=== PATIENT | male | born 1965 | race African-American/Black ===

== ENCOUNTER 2016-07-14 10:50 | Inpatient (IN) | payer OTHER ==
[2016-07-14 11:06] VITALS: BMI 24.4
--- NOTE | 2016-07-14 14:15 | HP ---
CIWA Score - CIWA Score Nausea/Vomitin-Int. Nausea w/Dry Heave Muscle Tremors: 3 Anxiety: 4-Mod. Anxious/Guarded Agitation: 4-Moderately Restless Paroxysmal Sweats: 1-Minimal Palms Moist Orientation: 0-Oriented Tacttile Disturbances: 3-Moderate Itch/Numb/Burn Auditory Disturbances: 0-None Visual Disturbances: 0-None Headache: 1-Very Mild CIWA-Ar Total Score: 20 Admission ROS S - HPI Chief Complaint: DETOX TX Allergies/Adverse Reactions: Allergies Allergy/AdvReac Type Severity Reaction Status Date / Time No Known Allergies Allergy Verified 07/14/16 13:23 History of Present Illness: 50 Y/O AA/MALE WITH A HX OF ALCOHOL, COCAINE,AND MARIJUANA DEPENDENCE. PT ON WAFARIN FOR DUE TO HX OF DVT RIGHT POPLITEAL AND PULMONARY EMBOLISM. PT STATES WAS IN [facility] AND CAME OUT ON 07/04/16 OR 07/05/16(INCONSISTENT HISTORY). PT STATES HE WAS TAKEN TO [facility] WHILE IN [facility] AND GIVEN ONE DOSE OF LOVENOX AND HAS NOT TAKEN ANTICOAGULANT SINCE THEN. PT HAS RX FOR SUBOXONE BUT CLAIMS HE IS NOT TAKING IT. Exam Limitations: No Limitations - Ebola screening Have you traveled outside of the country in the last 21 days: No Have you had contact with anyone from an Ebola affected area: No Have you been sick,other than usual withdrawal symptoms: No - Review of Systems Constitutional: Loss of Appetite, Night Sweats, Changes in sleep, Unintentional Wgt. Loss EENT: reports: Nose Congestion Respiratory: reports: No Symptoms reported Cardiac: reports: No Symptoms Reported GI: reports: Diarrhea, Nausea, Poor Appetite, Poor Fluid Intake, Indigestion : reports: Frequency (ON BP MEDS) Musculoskeletal: reports: Muscle Pain Integumentary: reports: Dryness Neuro: reports: Headache, Unsteady Gait, Dizziness Hematology: reports: Blood Clots (HX DVT RIGHT POPLITEAL AND PE BOTH LUNGS-- ARTERIAL IVC FILTER IN PLACE.) Psychiatric: reports: Orientated x3, Anxious, Depressed Other Systems: Reviewed and Negative Patient History - Patient Medical History Hx Anemia: No Hx Asthma: No Hx Chronic Obstructive Pulmonary Disease (COPD): No Hx Cancer: No Hx Cardiac Disorders: No Hx Congestive Heart Failure: No Hx Hypertension: Yes (ON MEDS) Hx Hypercholesterolemia: No Hx Pacemaker: No HX Cerebrovascular Accident: No Hx Seizures: No Hx Dementia: No Hx Diabetes: No Hx Gastrointestinal Disorders: No Hx Liver Disease: No Hx Genitourinary Disorders: No Hx Sexually Transmitted Disorders: Yes (GC as teenager/MAGDIEL) Hx Renal Disease (ESRD): No Hx Thyroid Disease: No Hx Human Immunodeficiency Virus (HIV): No (NEGATIVE HX) Hx Hepatitis C: No Hx Depression: Yes (ON MEDS) Hx Suicide Attempt: No (DENIES) Hx Bipolar Disorder: No Hx Schizophrenia: No - Patient Surgical History Past Surgical History: Yes Hx Neurologic Surgery: No Hx Cataract Extraction: No Hx Cardiac Surgery: No Hx Lung Surgery: No Hx Breast Surgery: No Hx Breast Biopsy: No Hx Abdominal Surgery: No Hx Appendectomy: No Hx Cholecystectomy: No Hx Genitourinary Surgery: No Hx Orthopedic Surgery: No Other Surgical History: IVC FILTER JANUARY 2014 Anesthesia Reaction: No - PPD History Previous Implant?: Yes Documented Results: Negative w/proof Implanted On Prior [facility] Admission?: Yes Date: 11/09/13 Results: 0 mm PPD to be Administered?: Yes - Reproductive History Patient is a Female of Child Bearing Age (11 -55 yrs old): No (MALE) - Smoking Cessation Smoking history: Never smoked Have you smoked in the past 12 months: No Hx Chewing Tobacco Use: No - Substance & Tx. History Hx Alcohol Use: Yes (BEER/VODKA) Hx Substance Use: Yes (COCAINE/MARIJUANA) Substance Use Type: Alcohol, Cocaine, Marijuana Hx Substance Use Treatment: Yes ([facility]) - Substances Abused Alcohol Route: Oral Frequency: Daily Amount used: beer(1-2 6pk-16 oz cans)/vodka(1 [pint) Age of first use: 17 Date of Last Use: 07/14/16 Cocaine Route: Inhalation Frequency: 3-6 times per week Amount used: $100 Age of first use: 19 Date of Last Use: 07/14/16 Marijuana/Hashish Route: Smoking Frequency: 3-6 times per week Amount used: louis bags Age of first use: 17 Date of Last Use: 07/13/16 Family Disease History - Family Disease History Family Disease History: Heart Disease: Mother (HTN,CX. CA), CA: Mother, Other: Father (ALCOHOLISM) Admission Physical Exam BHS - Vital Signs Vital Signs: Vital Signs - 24 hr 07/14/16 11:01 Temperature 97.1 F L Pulse Rate 72 Respiratory 20 Rate Blood Pressure 123/70 - Physical General Appearance: Yes: Moderate Distress, Irritable, Anxious HEENTM: Yes: EOMI, Normocephalic, MARIANA, Pharynx Normal Respiratory: Yes: Chest Non-Tender, Lungs Clear, Normal Breath Sounds, No Respiratory Distress Neck: Yes: No masses,lesions,Nodules, Supple, Trachea in good position Breast: Yes: Breast Exam Deferred Cardiology: Yes: Regular Rhythm, Regular Rate, S1, S2 Abdominal: Yes: Normal Bowel Sounds, Non Tender, Soft Genitourinary: Yes: Other (N/C) Back: Yes: Within Normal Limits Musculoskeletal: Yes: full range of Motion, Gait Steady Extremities: Yes: Normal Range of Motion, Non-Tender Neurological: Yes: relocation associate II-XII NML intact, Fully Oriented, Alert Integumentary: Yes: Dry, Warm Lymphatic: Yes: Within Normal Limits - Diagnostic (1) DVT (deep venous thrombosis) Current Visit: Yes Status: Chronic Qualifiers: DVT location: lower extremity Comment: ON WARFARIN; PT/INR PENDING (2) Hx pulmonary embolism Current Visit: Yes Status: Resolved (3) S/P insertion of inferior vena caval filter Current Visit: Yes Status: Chronic (4) Alcohol dependence with uncomplicated withdrawal Current Visit: Yes Status: Acute (5) Cocaine dependence, uncomplicated Current Visit: Yes Status: Acute (6) Cannabis dependence, uncomplicated Current Visit: Yes Status: Acute Cleared for Admission [facility] - Detox or Rehab [facility] Level of Care: Medically Managed Detox Regimen/Protocol: Librium [facility] Breath Alcohol Content Breath Alcohol Content: 0 Urine Drug Screen - Results Drug Screen Negative: No Urine Drug Screen Results: THC-Marijuana, CONNOR-Cocaine
[2016-07-14] MEDS ORDERED: diphenhydrAMINE HCL 50 MG CAPSULE PO PRN (14:48)
[2016-07-14] MEDS ORDERED: MAGNESIUM HYDROX 2400MG/30ML ORAL SUSPENSION 30 ML CUP PO PRN (14:48)
[2016-07-14] MEDS ORDERED: IBUPROFEN 400 MG TABLET (FP) PO PRN (14:48)
[2016-07-14] MEDS ORDERED: hydrOXYzine PAMOATE 25 MG CAPSULE (FP) PO PRN (14:48)
[2016-07-14] MEDS ORDERED: ACETAMINOPHEN 325 MG TABLET (FP) PO PRN (14:48)
[2016-07-14] MEDS ORDERED: P-EPHED 60MG/TRIPROLIDI 2.5MG TABLET PO PRN (14:48)
[2016-07-14] MEDS ORDERED: LOPERAMIDE HCL 2 MG CAPSULE PO PRN (14:48)
[2016-07-14] MEDS ORDERED: chlordiazePOXIDE HCL 25 MG CAPSULE PO PRN (14:48)
[2016-07-14] MEDS ORDERED: MENTHOL/PHENOL 1 EACH UD MM PRN (14:48)
[2016-07-14] MEDS ORDERED: guaiFENesin/D-METHORPHAN HB 10 ML UNIT-DOSE CUPS PO PRN (14:48)
[2016-07-14] MEDS ORDERED: MAGNESIUM CITRATE 300 ML BOTTLE PO PRN (14:48)
[2016-07-14] MEDS ORDERED: MAG HYDROX/AL HYDROX/SIMETH 30 ML UNIT-DOSE CUP PO PRN (14:48)
[2016-07-14] MEDS ORDERED: chlordiazePOXIDE HCL 25 MG CAPSULE PO ONE (16:15)
[2016-07-14] MEDS: HYDROCHLOROTHIAZIDE 25 MG TABLET (FP) PO SCH (16:34)
[2016-07-14 16:53] LABS: MCH 31.5 pg (25.7-33.7); MCHC 33.3 g/dl (32.0-35.9); MEAN CELL VOLUME 94.6 fl (80-96); MEAN PLT VOLUME 8.8 fl (7.5-11.1); PLATELET COUNT 215 K/MM3 (134-434); RDW 13.8 % (11.9-15.9); WHITE BLOOD COUNT 4.4 K/mm3 (4.0-10.0)
[2016-07-14 16:59] LABS: ALBUMIN 3.3 g/dl (3.4-5.0); ALK PHOS 51 U/L (45-117); ANION GAP 10 (8-16); BILIRUBIN,TOTAL 0.5 mg/dL (0.2-1.0); CALCIUM 8.5 mg/dL (8.5-10.1); CO2 26 mmol/L (21-32); COCKROFT - GAULT 87.4; GLUCOSE,RANDOM 92 mg/dL (74-106); SGOT/AST 18 U/L (15-37); SGPT/ALT 25 U/L (12-78); TOT PROT 6.5 g/dl (6.4-8.2)
[2016-07-14 17:05] LABS: URINE APPEARANCE CLEAR; URINE BILIRUBIN NEGATIVE (NEGATIVE); URINE BLOOD NEGATIVE (NEGATIVE); URINE COLOR YELLOW; URINE GLUCOSE (UA) NEGATIVE (NEGATIVE); URINE KETONE NEGATIVE (NEGATIVE); URINE LEUK ESTERASE NEGATIVE (NEGATIVE); URINE NITRITE NEGATIVE (NEGATIVE); URINE PROTEIN NEGATIVE (NEGATIVE); URINE UROBILINOGEN NEGATIVE E.U./dl (0.2-1.0)
[2016-07-14] MEDS ORDERED: ASPIRIN COATED 81 MG TABLET.EC PO SCH (17:30)
[2016-07-14 17:32] LABS: INR 0.98 (0.82-1.09); PROTHROMBIN TIME (PATIENT) 10.8 SEC (9.98-11.88)
[2016-07-14] MEDS: chlordiazePOXIDE HCL 25 MG CAPSULE PO SCH ×2 (17:32→22:36)
[2016-07-14] MEDS ORDERED: WARFARIN NA 10 MG TABLET (FP) PO SCH ×2 (18:00)
[2016-07-14] MEDS: THIAMINE HCL 100 MG TABLET (FP) PO SCH (22:36)
[2016-07-15] MEDS: chlordiazePOXIDE HCL 25 MG CAPSULE PO SCH ×4 (06:08→22:35)
[2016-07-15 09:04] LABS: HIV 1 & 2 AB NEGATIVE; HIV 1 AGp24 NEGATIVE
--- NOTE | 2016-07-15 10:27 | PN ---
S CIWA - CIWA Score Nausea/Vomitin-Mild Nausea/No Vomiting Muscle Tremors: 4-Moderate,w/Arms Extend Anxiety: 3 Agitation: 4-Moderately Restless Paroxysmal Sweats: 3 Orientation: 0-Oriented Tacttile Disturbances: 0-None Auditory Disturbances: 0-None Visual Disturbances: 0-None Headache: 0-None Present CIWA-Ar Total Score: 15 BHS Progress Note (SOAP) Subjective: Anxiety,tremors,sweating,interrupted sleep,restless Objective: 07/15/16 10:25 Vital Signs - 8 hr 07/15/16 07/15/16 07/15/16 03:30 06:49 09:58 Temperature 97.5 F L 95.9 F L Pulse Rate 69 80 Respiratory 18 18 18 Rate Blood Pressure 124/90 132/80 Laboratory Last Values WBC 4.4 K/mm3 (4.0-10.0) 07/14/16 13:00 RBC 4.10 M/mm3 (4.00-5.60) 07/14/16 13:00 Hgb 12.9 GM/dL (11.7-16.9) 07/14/16 13:00 Hct 38.8 % (35.4-49) 07/14/16 13:00 MCV 94.6 fl (80-96) 07/14/16 13:00 MCHC 33.3 g/dl (32.0-35.9) 07/14/16 13:00 RDW 13.8 % (11.9-15.9) D 07/14/16 13:00 Plt Count 215 K/MM3 (134-434) D 07/14/16 13:00 MPV 8.8 fl (7.5-11.1) 07/14/16 13:00 INR 0.98 (0.82-1.09) 07/14/16 13:00 Sodium 146 mmol/L (136-145) H 07/14/16 13:00 Potassium 3.8 mmol/L (3.5-5.1) 07/14/16 13:00 Chloride 110 mmol/L (98-107) H 07/14/16 13:00 Carbon Dioxide 26 mmol/L (21-32) 07/14/16 13:00 Anion Gap 10 (8-16) 07/14/16 13:00 BUN 11 mg/dL (7-18) D 07/14/16 13:00 Creatinine 1.0 mg/dL (0.7-1.3) 07/14/16 13:00 Creat Clearance w eGFR > 60 (>60) 07/14/16 13:00 Random Glucose 92 mg/dL (74-106) 07/14/16 13:00 Calcium 8.5 mg/dL (8.5-10.1) 07/14/16 13:00 Total Bilirubin 0.5 mg/dL (0.2-1.0) 07/14/16 13:00 AST 18 U/L (15-37) 07/14/16 13:00 ALT 25 U/L (12-78) D 07/14/16 13:00 Alkaline Phosphatase 51 U/L (45-117) D 07/14/16 13:00 Total Protein 6.5 g/dl (6.4-8.2) 07/14/16 13:00 Albumin 3.3 g/dl (3.4-5.0) L 07/14/16 13:00 Urine Color Yellow 07/14/16 15:00 Urine Appearance Clear 07/14/16 15:00 Urine pH 6.0 (5.0-8.0) 07/14/16 15:00 Ur Specific [place] 1.026 (1.001-1.035) 07/14/16 15:00 Urine Protein Negative (NEGATIVE) 07/14/16 15:00 Urine Glucose (UA) Negative (NEGATIVE) 07/14/16 15:00 Urine Ketones Negative (NEGATIVE) 07/14/16 15:00 Urine Blood Negative (NEGATIVE) 07/14/16 15:00 Urine Nitrite Negative (NEGATIVE) 07/14/16 15:00 Urine Bilirubin Negative (NEGATIVE) 07/14/16 15:00 Urine Urobilinogen Negative E.U./dl (0.2-1.0) 07/14/16 15:00 Ur Leukocyte Esterase Negative (NEGATIVE) 07/14/16 15:00 RPR Titer Nonreactive (NONREACTIVE) 07/14/16 13:00 HIV 1&2 Antibody Screen Negative 07/14/16 13:00 HIV P24 Antigen Negative 07/14/16 13:00 labs noted Assessment: 07/15/16 10:27 Withdrawal sx. Plan: Continue detox
[2016-07-15] MEDS: HYDROCHLOROTHIAZIDE 25 MG TABLET (FP) PO SCH (10:38)
[2016-07-15] MEDS: PRENATAL VITAMINS W/ FOLIC ACID TABLET (FP) PO SCH (10:38)
--- NOTE | 2016-07-15 14:10 | EKG ---
Test Reason : Blood Pressure : / mmHG Vent. Rate : 058 BPM Atrial Rate : 058 BPM P-R Int : 106 ms QRS Dur : 096 ms QT Int : 438 ms P-R-T Axes : 065 025 014 degrees QTc Int : 429 ms SINUS BRADYCARDIA WITH SHORT CO OTHERWISE NORMAL ECG NO PREVIOUS ECGS AVAILABLE Confirmed by SHARMIN KELLEY, COLTON ([id number]) on 07/15/2016 2:09:36 PM Referred By: Confirmed By:COLTON FINNEY MD
--- NOTE | 2016-07-15 17:02 | CONSULT ---
[facility] Psychiatric Consult - Data Date of interview: 07/15/16 Admission source: [facility] Identifying data: Readmission to [facility] for this 50 y/o AA male from [place] ancestry seeking detox treatment for alcohol,cocaine and marijuana dependence.Patient is ,a father of one,domiciled,unemployed and supported on Public Assistance. Substance Abuse History: - Smoking Cessation. Smoking history: Never smoked. Have you smoked in the past 12 months: No. Hx Chewing Tobacco Use: No. - Substance & Tx. History. Hx Alcohol Use: Yes (BEER/VODKA). Hx Substance Use: Yes (COCAINE/MARIJUANA). Substance Use Type: Alcohol, Cocaine, Marijuana. Hx Substance Use Treatment: Yes ([facility]). - Substances Abused. Alcohol. Route: Oral. Frequency: Daily. Amount used: beer(1-2 6pk-16 oz cans)/vodka(1 [ pint). Age of first use: 17. Date of Last Use: 07/14/16. Cocaine. Route: Inhalation. Frequency: 3-6 times per week. Amount used: $100. Age of first use: 19. Date of Last Use: 07/14/16. Marijuana/Hashish. Route: Smoking. Frequency: 3-6 times per week. Amount used: louis bags. Age of first use: 17. Date of Last Use: 07/13/16. Confirmed by patient. Medical History: Hypertension and a history of DVT (right popliteal vein)/ pulmonary embolism (IVC filter in place). Psychiatric History: Recent onset of psychiatric problems (one year).Diagnosed with " manic-depressive " problems.Prescribed wellbutrin XL 150 mg/day.Mr Hennessy reports past history of psychiatric hospitalizations at [facility] [place], [place], [facility] and [facility].He gets his OPD care at the [facility] health clinic in the [place].Patient denies history of suicide attempts. Physical/Sexual Abuse/Trauma History: Patient denies. Additional Comment: Urine Drug Screen Results: THC-Marijuana, CONNOR-Cocaine.Noted. Mental Status Exam - Mental Status Exam Alert and Oriented to: Time, Place, Person Cognitive Function: Good Patient Appearance: Well Groomed Mood: Hopeful, Euthymic Affect: Appropriate, Normal Range Patient Behavior: Appropriate, Cooperative Speech Pattern: Clear, Appropriate Voice Loudness: Normal Thought Process: Goal Oriented Thought Disorder: Not Present Hallucinations: Denies Suicidal Ideation: Denies Homicidal Ideation: Denies Insight/Judgement: Poor Sleep: Well Appetite: Good Muscle strength/Tone: Normal Gait/Station: Normal Psychiatric Findings - Problem List ([place] 1, 2,3) (1) Alcohol dependence with uncomplicated withdrawal Current Visit: Yes Status: Acute (2) Cannabis dependence, uncomplicated Current Visit: Yes Status: Acute (3) Cocaine dependence, uncomplicated Current Visit: Yes Status: Acute (4) MDD (major depressive disorder), recurrent episode, moderate Current Visit: Yes Status: Chronic (5) DVT (deep venous thrombosis) Current Visit: Yes Status: Chronic Qualifiers: DVT location: lower extremity Comment: ON WARFARIN; PT/INR PENDING (6) S/P insertion of inferior vena caval filter Current Visit: Yes Status: Chronic (7) Hx pulmonary embolism Current Visit: Yes Status: Resolved - Initial Treatment Plan Initial Treatment Plan: Psychoeducation.Detoxification.Wellbutrin XL 150 mg po daily.Patient made aware of risk for seizures.He denies past history of adverse events from wellbutrin and requests the inclusion of that drug in the current regimen.Observation.
[2016-07-15] MEDS ORDERED: WARFARIN NA 7.5 MG TABLET (FP) PO SCH (18:00)
[2016-07-15] MEDS: THIAMINE HCL 100 MG TABLET (FP) PO SCH (22:35)
[2016-07-16] MEDS: chlordiazePOXIDE HCL 25 MG CAPSULE PO SCH ×2 (05:56→10:33)
[2016-07-16] MEDS: PRENATAL VITAMINS W/ FOLIC ACID TABLET (FP) PO SCH (10:33)
[2016-07-16] MEDS: HYDROCHLOROTHIAZIDE 25 MG TABLET (FP) PO SCH (10:33)
[2016-07-16] MEDS: WARFARIN NA 10 MG TABLET (FP) PO SCH (17:06)
[2016-07-16] MEDS: chlordiazePOXIDE 5 MG CAPSULE PO SCH ×2 (17:06→22:50)
[2016-07-16] MEDS: THIAMINE HCL 100 MG TABLET (FP) PO SCH (22:50)
--- NOTE | 2016-07-16 23:13 | PN ---
[facility] CIWA - CIWA Score Nausea/Vomitin-No Nausea/No Vomiting Muscle Tremors: 4-Moderate,w/Arms Extend Anxiety: 4-Mod. Anxious/Guarded Agitation: 4-Moderately Restless Paroxysmal Sweats: 1-Minimal Palms Moist Orientation: 0-Oriented Tacttile Disturbances: 3-Moderate Itch/Numb/Burn Auditory Disturbances: 0-None Visual Disturbances: 0-None Headache: 0-None Present CIWA-Ar Total Score: 16 BHS Progress Note (SOAP) Subjective: slight anxiety sweats tremors Objective: 07/16/16 23:11 Laboratory Last Values WBC 4.4 K/mm3 (4.0-10.0) 07/14/16 13:00 RBC 4.10 M/mm3 (4.00-5.60) 07/14/16 13:00 Hgb 12.9 GM/dL (11.7-16.9) 07/14/16 13:00 Hct 38.8 % (35.4-49) 07/14/16 13:00 MCV 94.6 fl (80-96) 07/14/16 13:00 MCHC 33.3 g/dl (32.0-35.9) 07/14/16 13:00 RDW 13.8 % (11.9-15.9) D 07/14/16 13:00 Plt Count 215 K/MM3 (134-434) D 07/14/16 13:00 MPV 8.8 fl (7.5-11.1) 07/14/16 13:00 INR 0.98 (0.82-1.09) 07/14/16 13:00 Sodium 146 mmol/L (136-145) H 07/14/16 13:00 Potassium 3.8 mmol/L (3.5-5.1) 07/14/16 13:00 Chloride 110 mmol/L (98-107) H 07/14/16 13:00 Carbon Dioxide 26 mmol/L (21-32) 07/14/16 13:00 Anion Gap 10 (8-16) 07/14/16 13:00 BUN 11 mg/dL (7-18) D 07/14/16 13:00 Creatinine 1.0 mg/dL (0.7-1.3) 07/14/16 13:00 Creat Clearance w eGFR > 60 (>60) 07/14/16 13:00 Random Glucose 92 mg/dL (74-106) 07/14/16 13:00 Calcium 8.5 mg/dL (8.5-10.1) 07/14/16 13:00 Total Bilirubin 0.5 mg/dL (0.2-1.0) 07/14/16 13:00 AST 18 U/L (15-37) 07/14/16 13:00 ALT 25 U/L (12-78) D 07/14/16 13:00 Alkaline Phosphatase 51 U/L (45-117) D 07/14/16 13:00 Total Protein 6.5 g/dl (6.4-8.2) 07/14/16 13:00 Albumin 3.3 g/dl (3.4-5.0) L 07/14/16 13:00 Urine Color Yellow 07/14/16 15:00 Urine Appearance Clear 07/14/16 15:00 Urine pH 6.0 (5.0-8.0) 07/14/16 15:00 Ur Specific [place] 1.026 (1.001-1.035) 07/14/16 15:00 Urine Protein Negative (NEGATIVE) 07/14/16 15:00 Urine Glucose (UA) Negative (NEGATIVE) 07/14/16 15:00 Urine Ketones Negative (NEGATIVE) 07/14/16 15:00 Urine Blood Negative (NEGATIVE) 07/14/16 15:00 Urine Nitrite Negative (NEGATIVE) 07/14/16 15:00 Urine Bilirubin Negative (NEGATIVE) 07/14/16 15:00 Urine Urobilinogen Negative E.U./dl (0.2-1.0) 07/14/16 15:00 Ur Leukocyte Esterase Negative (NEGATIVE) 07/14/16 15:00 RPR Titer Nonreactive (NONREACTIVE) 07/14/16 13:00 HIV 1&2 Antibody Screen Negative 07/14/16 13:00 HIV P24 Antigen Negative 07/14/16 13:00 07/16/16 23:11 Vital Signs - 24 hr 07/16/16 07/16/16 07/16/16 00:30 03:33 06:38 Temperature 97.2 F L Pulse Rate 78 Respiratory 18 18 18 Rate Blood Pressure 122/81 07/16/16 07/16/16 07/16/16 09:57 17:47 22:40 Temperature 96.8 F L 97 F L 96.8 F L Pulse Rate 89 71 75 Respiratory 18 16 18 Rate Blood Pressure 122/82 104/68 122/78 Assessment: 07/16/16 23:11 withdrawal sx Plan: continue detox inr in am
[2016-07-17] MEDS: chlordiazePOXIDE 5 MG CAPSULE PO SCH ×2 (05:29→10:40)
[2016-07-17 10:19] LABS: INR 2.23 (0.82-1.09); PROTHROMBIN TIME (PATIENT) 24.9 SEC (9.98-11.88)
[2016-07-17] MEDS: HYDROCHLOROTHIAZIDE 25 MG TABLET (FP) PO SCH (10:40)
[2016-07-17] MEDS: PRENATAL VITAMINS W/ FOLIC ACID TABLET (FP) PO SCH (10:40)
--- NOTE | 2016-07-17 10:56 | PN ---
BHS Progress Note (SOAP) Subjective: Sweating,interrupted sleep,restless Objective: 07/17/16 10:55 Vital Signs - 8 hr 07/17/16 07/17/16 07/17/16 03:30 06:32 09:22 Temperature 96.7 F L 97.4 F L Pulse Rate 81 77 Respiratory 18 18 18 Rate Blood Pressure 114/83 122/84 Laboratory Last Values WBC 4.4 K/mm3 (4.0-10.0) 07/14/16 13:00 RBC 4.10 M/mm3 (4.00-5.60) 07/14/16 13:00 Hgb 12.9 GM/dL (11.7-16.9) 07/14/16 13:00 Hct 38.8 % (35.4-49) 07/14/16 13:00 MCV 94.6 fl (80-96) 07/14/16 13:00 MCHC 33.3 g/dl (32.0-35.9) 07/14/16 13:00 RDW 13.8 % (11.9-15.9) D 07/14/16 13:00 Plt Count 215 K/MM3 (134-434) D 07/14/16 13:00 MPV 8.8 fl (7.5-11.1) 07/14/16 13:00 INR 2.23 (0.82-1.09) H D 07/17/16 06:45 Sodium 146 mmol/L (136-145) H 07/14/16 13:00 Potassium 3.8 mmol/L (3.5-5.1) 07/14/16 13:00 Chloride 110 mmol/L (98-107) H 07/14/16 13:00 Carbon Dioxide 26 mmol/L (21-32) 07/14/16 13:00 Anion Gap 10 (8-16) 07/14/16 13:00 BUN 11 mg/dL (7-18) D 07/14/16 13:00 Creatinine 1.0 mg/dL (0.7-1.3) 07/14/16 13:00 Creat Clearance w eGFR > 60 (>60) 07/14/16 13:00 Random Glucose 92 mg/dL (74-106) 07/14/16 13:00 Calcium 8.5 mg/dL (8.5-10.1) 07/14/16 13:00 Total Bilirubin 0.5 mg/dL (0.2-1.0) 07/14/16 13:00 AST 18 U/L (15-37) 07/14/16 13:00 ALT 25 U/L (12-78) D 07/14/16 13:00 Alkaline Phosphatase 51 U/L (45-117) D 07/14/16 13:00 Total Protein 6.5 g/dl (6.4-8.2) 07/14/16 13:00 Albumin 3.3 g/dl (3.4-5.0) L 07/14/16 13:00 Urine Color Yellow 07/14/16 15:00 Urine Appearance Clear 07/14/16 15:00 Urine pH 6.0 (5.0-8.0) 07/14/16 15:00 Ur Specific [place] 1.026 (1.001-1.035) 07/14/16 15:00 Urine Protein Negative (NEGATIVE) 07/14/16 15:00 Urine Glucose (UA) Negative (NEGATIVE) 07/14/16 15:00 Urine Ketones Negative (NEGATIVE) 07/14/16 15:00 Urine Blood Negative (NEGATIVE) 07/14/16 15:00 Urine Nitrite Negative (NEGATIVE) 07/14/16 15:00 Urine Bilirubin Negative (NEGATIVE) 07/14/16 15:00 Urine Urobilinogen Negative E.U./dl (0.2-1.0) 07/14/16 15:00 Ur Leukocyte Esterase Negative (NEGATIVE) 07/14/16 15:00 RPR Titer Nonreactive (NONREACTIVE) 07/14/16 13:00 HIV 1&2 Antibody Screen Negative 07/14/16 13:00 HIV P24 Antigen Negative 07/14/16 13:00 labs noted Assessment: 07/17/16 10:56 Withdrawal sx. Plan: Continue detox
[2016-07-17] MEDS: chlordiazePOXIDE HCL 10 MG CAPSULE PO SCH ×2 (17:52→22:27)
[2016-07-17] MEDS: WARFARIN NA 10 MG TABLET (FP) PO SCH (17:52)
[2016-07-17] MEDS: THIAMINE HCL 100 MG TABLET (FP) PO SCH (22:27)
[2016-07-18] MEDS: chlordiazePOXIDE HCL 10 MG CAPSULE PO SCH (06:30)
[2016-07-18 06:42] VITALS: BP 114/81; PULSE 77; TEMP 96.6
--- NOTE | 2016-07-18 08:26 | DS ---
[facility] Detox Discharge Summary Admission Date: 07/14/16 Discharge Date: 07/18/16 - History Present History: Alcohol Dependence, Cannabis Dependence, Cocaine Dependence Additional Comments: DETOX COMPLETED.ALERT O X 3. NAD. PT WILL F/U WITH HIS PMD,CONRAD AUSTIN MD [place] [address] [place] [address]([facility]) FOR ANTICOAGULANT MONITORING/TREATMENT. PT HAS HIS RX FOR COUMADIN AT HIS PHARMACY AND INSTRUCTED TO PICK IT UP TODAY. Pertinent Past History: DVT PE S/P IVC FILTER HTN - Physical Exam Results Vital Signs: Vital Signs Temperature 96.6 F L 07/18/16 06:41 Pulse Rate 77 07/18/16 06:41 Respiratory Rate 18 07/18/16 06:41 Blood Pressure 114/81 07/18/16 06:41 O2 Sat by Pulse Oximetry (%) Pertinent Admission Physical Exam Findings: WITHDRAWAL SX - Treatment Hospital Course: Detox Protocol Followed, Detoxed Safely, Responded well, Discharged Condition Good - Medication Discharge Medications: Ambulatory Orders Aspirin [Aspirin EC] 81 mg PO DAILY 07/14/16 Bupropion HCl [Wellbutrin -] 150 mg PO DAILY 07/14/16 Hydrochlorothiazide [Hctz -] 25 mg PO DAILY 07/14/16 Warfarin Sodium [Coumadin] 7.5 mg PO HS 07/14/16 Bupropion HCl [Wellbutrin Xl -] 150 mg PO DAILY #30 tab.sr.24h 07/15/16 - Diagnosis (1) DVT (deep venous thrombosis) Status: Chronic Qualifiers: DVT location: lower extremity (2) Hx pulmonary embolism Status: Resolved (3) S/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
== END 2016-07-18 08:41 | disposition home or self-care (01) | DRG 774 ==
LOC: YASAS 10:50 → Y3N 14:12
PROVIDERS: ADMIT Internal Medicine; ATTEND Internal Medicine
PROC: HZ2ZZZZ Detoxification Services for Substance Abuse Treatment (ICD-10-PCS; principal; 2016-07-18)
DX: F10.230 Alcohol dependence with withdrawal, uncomplicated (principal); F14.20 Cocaine dependence, uncomplicated; F12.20 Cannabis dependence, uncomplicated; F33.1 Major depressive disorder, recurrent, moderate; I10 Essential (primary) hypertension; Z86.711 Personal history of pulmonary embolism; Z86.718 Personal history of other venous thrombosis and embolism; Z79.01 Long term (current) use of anticoagulants
CPT/HCPCS: 36415; 80053; 81003; 85027; 85610; 86593; 87389; 93005; 93010